=== PATIENT | female | born 1980 | race Caucasian/White ===

== ENCOUNTER → 2017-07-27 19:16 | Outpatient (CLI) | payer SELFPAY ==
[2017-03-22 16:00] VITALS: BP 127/73
[2017-07-27 08:41] VITALS: BP 126/84; BMI 47.5
== END ==
PROVIDERS: Family Provider Family Medicine; PCP Family Medicine; Visit Provider Physician Assistant Surgical
DX: J02.9 Acute pharyngitis, unspecified (principal)
CPT/HCPCS: 87081

== ENCOUNTER → 2017-08-24 09:04 | Outpatient (CLI) | payer SELFPAY ==
[2017-08-24 11:51] LABS: Absolute Lymphocyte Count 0.81 X10^3/ul (0.83-4.51); Basophil# 0.01 X10^3/uL; Basophil% 0.2 % (0-1); Eosinophil# 0.02 X10^3/uL; Eosinophils% 0.5 % (0-5); Hematocrit 43.3 % (37-47); Hemoglobin 14.4 g/dl (12.0-15.0); Lymphocyte # 0.81 X10^3/ul (4.0); Lymphocyte % 18.3 % (19-41); Mean Corp Hgb Conc 33.3 g/gl (32-36); Mean Corpuscular Hgb 30.7 pg (27.0-32.0); Mean Corpuscular Volume 92.3 fL (81-99); Mean Platelet Vol. 9.7 fl (6.2-12.0); Monocyte# 0.58 X10^3/uL; Monocyte% 13.1 % (0-10); Neutrophil # 3.01 X10^3/uL (2.7-7.7); Neutrophil % 67.9 % (47-70); Platelet Count 240 K/mm3 (150-450); RBC Distribution Width CV 13.1 % (11.6-14.6); RBC Distribution Width SD 43.7 fl (35.1-43.9); Red Blood Count 4.69 M/mm3 (4.2-5.4); White Blood Count 4.4 K/mm3 (4.4-11.0)
[2017-08-24 11:56] LABS: POSITIVE COUNT NO; POSITIVE DIFFERENTIAL NO; POSITIVE MORPHOLOGY NO
[2017-08-24 12:10] LABS: Hemoglobin A1c 5.5 % (4.2-6.3)
[2017-08-24 12:16] LABS: AST(SGOT) 50 U/L (15-37); Alanine Aminotransfer ALT/SGPT 129 U/L (13-56); Albumin, Serum 3.6 g/dL (3.2-5.0); Alkaline Phosphatase 102 U/L (45-117); Anion Gap 8 (5-15); BUN 11 mg/dL (7-18); BUN/Creat Ratio 15.8 RATIO (10-20); Calcium,Total 8.9 mg/dL (8.5-10.1); Chloride 105 mmol/L (98-107); Cholesterol 111 mg/dL (200); EST Glomerular Filtration Rate 101 mL/min (>60); Est Glom Filt Rate - Afr Amer 122 mL/min (>60); Globulin 3.7 g/dL (2.2-4.2); Glucose 95 mg/dL (74-106); High Density Lipoprotein 38 mg/dL; Potassium 4.3 mmol/L (3.5-5.1); Protein, Total 7.3 g/dL (6.4-8.2); Sodium Level 138 mmol/L (136-145); Thyroid Stim Hormone (TSH) 1.44 uIU/mL (0.358-3.74); Triglycerides 73 mg/dL; Very Low Density Lipoprotein 15 mg/dL (5-40)
[2017-08-26 16:10] LABS: Hepatitis Be Ag Negative (Negative)
[2017-08-27 11:15] LABS: Hep C Antibodies <0.1 s/co ratio (0.0-0.9); Hepatitis Be Ab Negative (Negative)
== END ==
PROVIDERS: Family Provider Family Medicine; PCP Family Medicine; Visit Provider Family Medicine
DX: Z00.00 Encounter for general adult medical examination without abnormal findings (principal); E66.01 Morbid (severe) obesity due to excess calories; R74.8 Abnormal levels of other serum enzymes
CPT/HCPCS: 36415; 80053; 80061; 83036; 84443; 85025; 86707; 86803; 87350

== ENCOUNTER → 2018-06-23 10:43 | Outpatient (CLI) | payer BC, SELFPAY ==
[2018-06-23 10:43] VITALS: BMI 47.5
[2018-06-23 12:23] LABS: ALB/GLOB Ratio 1.2 RATIO (0.9-2.4); AST(SGOT) 19 U/L (15-37); Alanine Aminotransfer ALT/SGPT 34 U/L (13-56); Albumin, Serum 3.9 g/dL (3.2-5.0); Alkaline Phosphatase 83 U/L (45-117); Anion Gap 7 (5-15); BUN 13 mg/dL (7-18); BUN/Creat Ratio 19.8 RATIO (10-20); Chloride 102 mmol/L (98-107); Creatinine, Serum 0.66 mg/dL (0.55-1.02); EST Glomerular Filtration Rate 108 mL/min (>60); Est Glom Filt Rate - Afr Amer 131 mL/min (>60); Globulin 3.2 g/dL (2.2-4.2); Glucose 96 mg/dL (74-106); Potassium 4.7 mmol/L (3.5-5.1); Protein, Total 7.1 g/dL (6.4-8.2); Sodium Level 137 mmol/L (136-145)
== END ==
PROVIDERS: Family Provider Family Medicine; PCP Family Medicine; Visit Provider Family Medicine
DX: R94.5 Abnormal results of liver function studies (principal)
CPT/HCPCS: 36415; 80053

== ENCOUNTER → 2018-08-24 16:04 | Outpatient (CLI) | payer BC, SELFPAY ==
[2018-08-24 08:23] VITALS: BMI 47.5
[2018-08-31 16:38] LABS: HPV APTIMA, High Risk Negative (Negative)
== END ==
PROVIDERS: Family Provider Family Medicine; PCP Family Medicine; Referring Provider Nurse Practitioner Women's Health; Visit Provider Nurse Practitioner Women's Health
DX: Z12.4 Encounter for screening for malignant neoplasm of cervix (principal)
CPT/HCPCS: 87624; 88175; G0145

== ENCOUNTER → 2018-09-06 13:07 | Outpatient (CLI) | payer BC, SELFPAY ==
[2018-09-06 11:50] VITALS: BMI 47.5
[2018-09-10 11:55] LABS: HPV APTIMA, High Risk Negative (Negative)
== END ==
PROVIDERS: Family Provider Family Medicine; PCP Family Medicine; Referring Provider Nurse Practitioner Women's Health; Visit Provider Nurse Practitioner Women's Health
DX: R87.615 Unsatisfactory cytologic smear of cervix (principal)
CPT/HCPCS: 87624; 88175; G0145

== ENCOUNTER → 2018-11-05 | Outpatient (CLI) | payer BC, SELFPAY ==
[2018-09-06 11:50] VITALS: BMI 47.5
[2018-11-05 09:28] LABS: hCG Titer Quant., Serum 4366 mIU/mL (1-3)
== END | disposition home or self-care (01) ==
LOC: LAB 07:11
PROVIDERS: Family Provider Family Medicine; PCP Family Medicine; Referring Provider Obstetrics & Gynecology; Visit Provider Obstetrics & Gynecology
DX: Z34.90 Encounter for supervision of normal pregnancy, unspecified, unspecified trimester (principal)
CPT/HCPCS: 36415; 84702

== ENCOUNTER → 2018-11-15 | Outpatient (CLI) | payer BC, SELFPAY ==
[2018-11-15 11:10] VITALS: BMI 47.5
[2018-11-15 13:11] LABS: Absolute Lymphocyte Count 1.36 X10^3/ul (0.83-4.51); Absolute Neutrophil Count 5.6 X10^3/uL (2.0-7.7); Basophil# 0.01 X10^3/uL; Basophil% 0.1 % (0-1); Eosinophil# 0.01 X10^3/uL; Eosinophils% 0.1 % (0-5); Hematocrit 42.7 % (37-47); Hemoglobin 14.8 g/dl (12.0-15.0); Lymphocyte # 1.36 X10^3/ul (4.0); Lymphocyte % 17.9 % (19-41); Mean Corp Hgb Conc 34.7 g/gl (32-36); Mean Corpuscular Volume 89.3 fL (81-99); Mean Platelet Vol. 9.1 fl (6.2-12.0); Monocyte# 0.57 X10^3/uL; Monocyte% 7.5 % (0-10); Neutrophil # 5.63 X10^3/uL (2.7-7.7); Neutrophil % 74.3 % (47-70); Platelet Count 280 K/mm3 (150-450); Red Blood Count 4.78 M/mm3 (4.2-5.4); White Blood Count 7.6 K/mm3 (4.4-11.0)
[2018-11-15 13:18] LABS: POSITIVE COUNT NO; POSITIVE DIFFERENTIAL NO; POSITIVE MORPHOLOGY NO
[2018-11-15 13:32] LABS: Glucose Challenge Gest 1H 50g 112 mg/dL (70-140)
[2018-11-15 14:26] LABS: HIV - WCH Non-Reactive (Nonreactive)
[2018-11-15 15:54] LABS: Chlamydia Trachomatis by PCR Negative (Negative); Neisserai gonorrhoeae by PCR Negative (Negative); Probe Check PASS; Sample Adequacy Control PASS; Specimen Processing Control PASS
[2018-11-16 15:50] LABS: HEPATITIS B SURFACE AG Negative (Negative)
[2018-11-18 01:45] LABS: Rapid Plasmin Reagin (RPR) NONREACTIVE (NONREACTIVE)
== END | disposition home or self-care (01) ==
PROVIDERS: Family Provider Family Medicine; PCP Family Medicine; Referring Provider Obstetrics & Gynecology; Visit Provider Obstetrics & Gynecology
DX: Z34.90 Encounter for supervision of normal pregnancy, unspecified, unspecified trimester (principal)
CPT/HCPCS: 82950; 85025; 86592; 86703; 86762; 86850; 86900; 87340; 87491; 87591

== ENCOUNTER → 2018-11-24 | Outpatient (CLI) | payer BC, SELFPAY ==
[2018-11-15 11:10] VITALS: BMI 47.5
--- NOTE | 2018-11-24 13:59 | US_ITS ---
STUDY: FIRST TRIMESTER OBSTETRICAL ULTRASOUND REASON FOR EXAM: Female, 38 years old. dating. LMP: 09/24/18 TECHNIQUE: Transvaginal TECHNICAL QUALITY: Adequate. PRIOR ULTRASOUND: None. FINDINGS: There is visualization of a single gestational sac in a normal intrauterine position. The gestational sac shape is within normal limits. There is a visualized yolk sac. The yolk sac measures 5 mm. The placenta is non-visualized. There is visualization of a live embryo. The crown-rump length (CRL) measures 1.7 cm, indicating an estimated gestational age (EGA) of 8 weeks, 1 days. There is demonstrated cardiac activity with a heart rate of 174 bpm. The estimated gestation age (EGA) by LMP is 8 weeks, 5 days. The estimated date of delivery (RICHY) by LMP is 07/01/2019. The estimated gestation age (EGA) by US is 8 weeks, 1 days. The estimated date of delivery (RICHY) by US is 07/05/2019. The uterus measures 10.5 x 7.3 x 5.7 centimeters. There is no demonstrated uterine fibroid. The cervix is closed. The right ovary measures 2.5 x 1.3 x 1.4 cm. There is no right ovarian cyst. There is no visualized right adnexal mass or complex lesion. The left ovary measures 4.3 x 3.0 x 2.7 cm. There is a 2.3 cm cyst. There is no visualized left adnexal mass or complex lesion. There is no fluid in the cul de sac. US/Transvaginal w/Preg US IMPRESSION: Single live intrauterine gestation with ultrasound EGA of 8 weeks 1 day. No definite abnormality. Electronically Signed: Simone Linton MD at 16:07 EDT , Service support ,
== END | disposition home or self-care (01) ==
PROVIDERS: Family Provider Family Medicine; PCP Family Medicine; Referring Provider Obstetrics & Gynecology; Visit Provider Obstetrics & Gynecology
DX: Z36.89 Encounter for other specified antenatal screening (principal)
CPT/HCPCS: 76817

== ENCOUNTER → 2019-01-16 | Outpatient (CLI) | payer BC, SELFPAY ==
[2019-01-16 10:17] VITALS: BMI 47.5
== END | disposition home or self-care (01) ==
LOC: LABSPEC 12:50
PROVIDERS: Family Provider Family Medicine; PCP Family Medicine; Referring Provider Obstetrics & Gynecology; Visit Provider Obstetrics & Gynecology
DX: O09.90 Supervision of high risk pregnancy, unspecified, unspecified trimester (principal); Z3A.00 Weeks of gestation of pregnancy not specified
CPT/HCPCS: 87086; 87088

== ENCOUNTER → 2019-04-10 | Outpatient (CLI) | payer BC, SELFPAY ==
[2019-04-10 14:09] VITALS: BMI 48.7
[2019-04-10 16:18] LABS: Absolute Lymphocyte Count 1.42 X10^3/uL (0.83-4.51); Absolute Neutrophil Count 7.5 X10^3/uL (2.0-7.7); Basophil# 0.01 X10^3/uL; Basophil% 0.1 % (0-1); Eosinophil# 0.03 X10^3/uL; Eosinophils% 0.3 % (0-5); Hematocrit 36.7 % (37-47); Hemoglobin 12.3 g/dL (12.0-15.0); Lymphocyte # 1.42 X10^3/ul (4.0); Lymphocyte % 14.7 % (19-41); Mean Corp Hgb Conc 33.5 g/dL (32-36); Mean Corpuscular Hgb 31.8 pg (27.0-32.0); Mean Corpuscular Volume 94.8 fL (81-99); Monocyte% 7.2 % (0-10); NRBC Flagged by Analyzer 0 % (0-5); Neutrophil # 7.46 X10^3/uL (2.7-7.7); Neutrophil % 77.1 % (47-70); Platelet Count 221 K/mm3 (150-450); RBC Distribution Width CV 13.8 % (11.6-14.6); Red Blood Count 3.87 M/mm3 (4.2-5.4); White Blood Count 9.7 K/mm3 (4.4-11.0)
[2019-04-10 16:38] LABS: Glucose Challenge Gest 1H 50g 116 mg/dL (70-140)
== END | disposition home or self-care (01) ==
PROVIDERS: Family Provider Family Medicine; PCP Family Medicine; Referring Provider Obstetrics & Gynecology; Visit Provider Obstetrics & Gynecology
DX: Z34.92 Encounter for supervision of normal pregnancy, unspecified, second trimester (principal); Z3A.27 27 weeks gestation of pregnancy
CPT/HCPCS: 36415; 82950; 85025; 86850; 86900; 86901

== ENCOUNTER → 2019-05-19 07:53 | Outpatient (CLI) | payer BC, SELFPAY ==
[2019-05-08 14:06] VITALS: BMI 48.7
[2019-05-15 14:04] VITALS: BMI 48.7
--- NOTE | 2019-05-19 07:55 | US_ITS ---
STUDY: SECOND AND THIRD TRIMESTER OBSTETRICAL ULTRASOUND REASON FOR EXAM: Female, 39 years old LMP: TECHNIQUE: TECHNICAL QUALITY: Adequate. PRIOR ULTRASOUND: None. FINDINGS: There is a single intrauterine fetus. The fetus is in a cephalic presentation. There is demonstrated cardiac activity with a heart rate of 126 bpm. There is a normal amniotic fluid volume. The largest amniotic fluid pocket measures 3.7 cm. The amniotic fluid index (ROLF) is 11.1 cm. The placenta is fundal and posterior There are Grade 0 placental changes. The cervix measures 3.6 in length. The bilateral adnexal regions are normal. BIOMETRY: BPD: 8.6: cm 34 weeks, 4 days HC: 30.9cm34 weeks, 2 days AC: 31.4cm: 35 weeks, 2 days FL: 6.2 cm: 32 weeks, 2. days CI: 84% FL/BPD: 73% FL/HC: FL/AC: HC/AC: 98% age by current US: 33 weeks, 4 days. RICHY by current US: 07/03/2019. Estimated weight: 2415 grams, +/- 357 grams, 70.5 %. age by prior US: 33 weeks, 2. RICHY by prior US: 07/05/2019. Age by LMP: weeks, days. RICHY by LMP: . ANATOMY: Gender: Cranium: Normal lateral ventricles. Normal choroid plexus. Normal cerebellum. Normal cisterna magna. Normal face, nose and lips. Chest: Normal 4-chamber heart. Abdomen/Pelvis: Normal diaphragm. Normal stomach. Normal abdominal wall. Normal cord insertion. Normal 3 vessel cord. Normal kidneys. Normal bladder. Spine: Normal cervical spine. Normal thoracic spine. Normal lumbar spine. Normal sacrum. Extremities: Normal bilateral upper extremities. Normal bilateral lower extremities. US/OB Limited With Biometrics IMPRESSION: Viable corresponds to 33 weeks 4 days Electronically Signed: Chaya Douglas, at 11:06 EST Tel , Service support ,
== END ==
PROVIDERS: Family Provider Family Medicine; PCP Family Medicine; Referring Provider Obstetrics & Gynecology; Visit Provider Obstetrics & Gynecology
DX: O09.291 Supervision of pregnancy with other poor reproductive or obstetric history, first trimester (principal); O09.529 Supervision of elderly multigravida, unspecified trimester; Z3A.00 Weeks of gestation of pregnancy not specified
CPT/HCPCS: 76816

== ENCOUNTER 2019-05-22 14:24 | Outpatient (CLI) | payer BC, SELFPAY ==
[2019-05-15 14:04] VITALS: BMI 48.7
--- NOTE | 2019-05-22 17:47 | OB.TRI.PN ---
Progress Notes Date of Service: 05/22/19 Progress Note: FHT: 130 Moderate variability reactive no decelerations category I tracing [employer]: no Contractions Obesity and advanced maternal age reactive nst Multi Select Codes - Urinary/Genital Urinary/Genital CPT Codes: 30746-31 non-stress test Interp
== END 2019-05-22 15:20 | disposition home or self-care (01) ==
LOC: WPOUT 14:27 → WP 14:28
PROVIDERS: Family Provider Family Medicine; PCP Family Medicine; Referring Provider Obstetrics & Gynecology; Visit Provider Obstetrics & Gynecology
DX: O99.210 Obesity complicating pregnancy, unspecified trimester (principal); E66.9 Obesity, unspecified; Z3A.00 Weeks of gestation of pregnancy not specified
CPT/HCPCS: 59025; 59050; 99218; G0378

== ENCOUNTER 2019-06-05 14:10 | Outpatient (CLI) | payer BC, SELFPAY ==
[2019-05-29 14:05] VITALS: BMI 48.7
[2019-06-05 14:17] VITALS: BMI 50.7
--- NOTE | 2019-06-05 14:54 | OB.TRI.PN ---
Progress Notes Date of Service: 06/05/19 Progress Note: FHT: 130 Moderate variability reactive no decelerations category I tracing [place]: no Contractions NST secondary to obesity and advanced maternal age reactive NST category 1 tracing DC home - Problem List (1) Obesity affecting in third trimester Status: Acute Comment: weekly testing, encouraged healthy weight gain (2) AMA (advanced maternal age) multigravida 35+ Status: Acute Qualifiers: Comment: offered genetic screening, declined Multi Select Codes - Urinary/Genital Urinary/Genital CPT Codes: 36713-38 non-stress test Interp
== END 2019-06-05 15:00 | disposition home or self-care (01) ==
PROVIDERS: Family Provider Family Medicine; PCP Family Medicine; Referring Provider Obstetrics & Gynecology; Visit Provider Obstetrics & Gynecology
DX: O99.213 Obesity complicating pregnancy, third trimester (principal); Z3A.00 Weeks of gestation of pregnancy not specified
CPT/HCPCS: 59025

== ENCOUNTER → 2019-06-12 17:56 | Outpatient (CLI) | payer BC, SELFPAY ==
[2019-06-12 14:02] VITALS: BMI 50.7
== END ==
PROVIDERS: Family Provider Family Medicine; PCP Family Medicine; Referring Provider Obstetrics & Gynecology; Visit Provider Obstetrics & Gynecology
DX: Z34.93 Encounter for supervision of normal pregnancy, unspecified, third trimester (principal); Z3A.36 36 weeks gestation of pregnancy
CPT/HCPCS: 87081; 87186

== ENCOUNTER 2019-06-29 06:10 | Inpatient (IN) | payer BC, SELFPAY ==
[2019-06-26 14:20] VITALS: BMI 50.7
[2019-06-29] MEDS: Lactated Ringers 1,000 ML 50 ML IV (07:10)
[2019-06-29] MEDS: Lactated Ringers 500 ML 999 ML IV ×2 (07:35→08:27)
[2019-06-29 07:49] VITALS: BMI 51.9
[2019-06-29 07:54] LABS: Absolute Lymphocyte Count 0.82 X10^3/uL (0.83-4.51); Absolute Neutrophil Count 12.2 X10^3/uL (2.0-7.7); Basophil# 0.02 X10^3/uL; Basophil% 0.1 % (0-1); Eosinophil# 0.01 X10^3/uL; Eosinophils% 0.1 % (0-5); Hematocrit 39.9 % (37-47); Hemoglobin 13.5 g/dL (12.0-15.0); Lymphocyte # 0.82 X10^3/ul (4.0); Lymphocyte % 5.9 % (19-41); Mean Corp Hgb Conc 33.8 g/dL (32-36); Mean Corpuscular Hgb 31.3 pg (27.0-32.0); Mean Corpuscular Volume 92.6 fL (81-99); Mean Platelet Vol. 9.4 fl (6.2-12.0); Monocyte# 0.67 X10^3/uL; Monocyte% 4.9 % (0-10); NRBC Flagged by Analyzer 0 % (0-5); Neutrophil # 12.21 X10^3/uL (2.7-7.7); Neutrophil % 88.6 % (47-70); Platelet Count 202 K/mm3 (150-450); RBC Distribution Width CV 13.7 % (11.6-14.6); RBC Distribution Width SD 46.3 fl (35.1-43.9); Red Blood Count 4.31 M/mm3 (4.2-5.4); White Blood Count 13.8 K/mm3 (4.4-11.0)
[2019-06-29] MEDS: fentaNYL-bupivacaine (epidural) 100 ML BAG EPIDURAL (08:12)
--- NOTE | 2019-06-29 09:39 | PCM.HPOB.BLA ---
- Problem List (1) Active labor at term Status: Acute (2) AMA (advanced maternal age) multigravida 35+ Status: Acute Qualifiers: Comment: offered genetic screening, declined (3) History of pre-eclampsia in prior , currently in first trimester Status: Acute Comment: recommend baseline labs, baby ASA at 12 weeks (4) Obesity affecting in third trimester Status: Acute Comment: weekly testing, encouraged healthy weight gain (5) Positive GBS test Status: Acute Comment: pcn sensitive and use clinda to tx (6) Status: Acute Qualifiers: Comment: Declines additional testing (7) Supervision of high risk , antepartum Status: Acute Comment: PRR RICHY 07/05/19 boy TRACEE Hernandez Spouse Moises History and Physical Date of Admission: 06/29/19 Intake Vital Signs 06/26/19 Height 5 ft 1 in 06/26/19 Weight: 275 lb 4 oz 06/26/19 BMI 52.0 Intake Visit Reasons: 38 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 Emergency Required: No Accompanied by: Is patient in pain?: No Allergies gluten Allergy (Mild, Verified 06/26/19 14:19) unknown gentamicin Allergy (Verified 06/26/19 14:19) Rash pseudoephedrine [From Sudafed] Allergy (Verified 06/26/19 14:19) Rash Medications lactobacillus combination no.9 4 billion cell capsule 1 tab PO DAILY 07/27/17 [History Confirmed 06/26/19] Vits [Prenatabs FA ] 1 tab PO DAILY 06/05/19 [History Confirmed 06/26/19] Last Menstral Period: 09/24/18 Zika: Zika virus screening: Negative : No PFSH PFSH Medical History Fatty liver (Acute) History of pre-eclampsia (Acute) Hypertension (Chronic) Surgical History History of cholecystectomy (Inactive) Social History (Updated 06/27/19 @ 09:43 by Jennifer Garay MD) Smoking Status: Never smoker alcohol intake: current alcohol intake frequency: holidays/special occasions only details: social substance use type: does not use caffeine: Yes what type of physical activity do you participate in: none seatbelt use: always do you feel safe at home: Yes additional social history: Moises Pregancy History 2 Elective abortions Hx Para 1 Spontaneous abortions Hx # Term Pregnancies Ectopic pregnancies Hx # Pregnancies Multiple births # of living children Past Pregnancies Del. Date Name GA/Weeks Outcome Route Bth Weight Gen Labor Lgth Anesthesia Del Locatn Provider FOB 03/20/17 David 37 live - full term 7lbs 2oz Male epidural WC ZAID Delivery Date: 03/20/17 On 11/15/18 @ 11:25 Funmilayo Jacobs Pre E, HPI 38 WEEK OB/NST: Details: GEOFF TYLER is a 39 year old who presents for routine OB visit. OB Visit RICHY Calculator Estimated Delivery Date Method Current WG Current Estimate 07/05/19 Ultrasound #1 38w 6d Other Estimates 07/01/19 LMP (Certain) 39w 3d Expected Delivery Route/Plan Labor Preferences- labor support person: [] pain management options preferred: [] cut cord/dad catch: [] : PP control planned: [] discussed possible routes of delivery and associated risks: [] special requests: [] Specific Issue/Plans flu vaccine: declines tdap vaccine: given rhogam: na LARC form signed: declined movement and labor precautions reviewed. Problem list reviewed and updated with the most current plan of care details and appropriate orders placed. Relevant counseling for the gestational age provided. Continue routine care and follow up unless otherwise noted in visit notes/problem list details Initial Weight: 248 lb Date EGA Weight BP Urine Prot Glucose FHR FuHt Pres Mov CTX Dilation Effaced St Visit Note 12/15/18 11w 1d 250 lb 8 oz (+2 lb 8 oz) 112/88 Negative Negative 175 no vb crmpaing 01/16/19 15w 5d 249 lb 2 oz (+1 lb 2 oz) 112/78 02/14/19 19w 6d 258 lb (+10 lb) 116/82 Negative Negative 160 20 Active no vb lof good fm n oregular ctx 03/15/19 24w 0d 261 lb (+13 lb) 120/80 Negative Negative 150 24 Active no vb cramping 04/10/19 27w 5d 261 lb (+13 lb) 112/78 150 28 no vb cramping 04/24/19 29w 5d 267 lb 2 oz (+19 lb 2 oz) 128/86 Negative Negative 150 140 31 no vb lof good fm no regular ctx 05/08/19 31w 5d 264 lb 4 oz (+16 lb 4 oz) 124/84 Negative Negative 145 35 no vb lof good fm no reg ctx 05/15/19 32w 5d 268 lb (+20 lb) 126/82 Negative Negative 06/12/19 36w 5d 271 lb (+23 lb) 120/88 Negative Negative SM - no vb lof good fm no regular ctx gbs today 06/19/19 37w 5d 271 lb 2 oz (+23 lb 2 oz) 118/80 Negative Negative 140 37 SM- no vb lof good fm no regular ctx Notes Visit Date: 06/19/19 ??No visit notes to display Visit Date: 06/12/19 ??No visit notes to display Visit Date: 05/15/19 ??No visit notes to display Visit Date: 05/08/19 ??no vb lof good fm no reg ctx ??Jennifer Garay MD on 05/08/19 Visit Date: 04/24/19 ??no vb lof good fm no regular ctx ??Jennifer Garay MD on 04/24/19 Visit Date: 04/10/19 ??no vb cramping ??Jennifer Garay MD on 04/10/19 Visit Date: 03/15/19 ??no vb cramping ??Jennifer Garay MD on 03/15/19 Visit Date: 02/14/19 ??no vb lof good fm n oregular ctx ??Jennifer aGray MD on 02/20/19 Visit Date: 01/16/19 ??No visit notes to display Visit Date: 12/15/18 ??no vb crmpaing ??Jennifer Garay MD on 12/15/18 ACOG First Trimester First Trimester: Desire for , Alcohol, Tobacco Cessation, Illicit/Recreational Drug/Substance Use, Intimate Partner Violence, Barriers to care, Unstable Housing, Communication Barriers, Environmental/Work Hazards, Anticipated Course of Care, Toxoplasmosis Precations, Use of Any medications, Sexual activity, Exercise, Dental Care, Sauna/Hot tub use, Seat Belt use, Childbirth classes/Hospital facilities, , Travel, Indications for US and Screening for Aneuploidy Second Trimester Second Trimester: Signs and Symptoms of Labor, Selecting a care provider, Reproductive Life Planning, Care Planning, Tobacco Cessation, Depression/Anxiety and Intimate Partner Violence Third Trimester Third Trimester: Pain Management Plans, Labor support person(s), Immediate Larc, Movement Monitoring and Feeding Yes ; discussed Trial of Labor after Counseling or discussed Circumcision preference Diagnostics Diagnostics Diagnostics Blood Type O POSITIVE 04/10/19 Antibody Screen NEGATIVE 04/10/19 Glucose 1 Hr 50 gm 116 mg/dL (70-140) 04/10/19 Hgb 12.3 g/dL (12.0-15.0) 04/10/19 Hct 36.7 % (37-47) L 04/10/19 Details: HIV: Urine Culture: Sequential Screen: NIPT Screen: ROS Const Reports system reviewed and no additional complaints, except as docu Card Reports system reviewed and no additional complaints, except as docu Resp Reports system reviewed and no additional complaints, except as docu GI Reports system reviewed and no additional complaints, except as docu, Reports nausea Reports system reviewed and no additional complaints, except as docu Musc Reports system reviewed and no additional complaints, except as docu Exam Const General: cooperative, healthy appearing, comfortable, anxious HENMO Head: normal to inspection Nose: external nose normal Face and sinus: normal facial exam Neck Neck: normal visual inspection, full ROM, no lymphadenopathy Thyroid: thyroid normal Chest Chest palpation & inspection: normal inspection of the chest Resp Effort & Inspection: normal respiratory effort GI Inspection: normal to inspection Palpation: soft, other (gravid uterus) Other: infant vertex and appropriate size for gestational age Other: Cervical Exam: Extrem General: pedal edema Office Procedures OB NST Non-Stress Test Indications for Monitoring: Yes BMI >40 Heart Rate Baseline: 130 Heart Rate Variability: moderate Movement: Present Heart Rate Accelerations: Present Decelerations: Absent Contractions: Absent Impression: Yes Reactive Non-Stress Test Category 1 Results POC Urinalysis 2 Dip (Clinic) Office Urine Glucose Negative Last Edit by Karen Lawson on 06/26/19 14:18 Office Urine Protein Negative Last Edit by Karen Lawson on 06/26/19 14:18 Assessment & Plan 39 yo @ 39 weeks presents IAL plan epidural, arom clear fluid. exp management gbs pos- pcn. Orders Orders: OB NST 06/26/19 O99.213 POC Urinalysis 2 Dip (Clinic) 06/26/19 Coding Level of Care Code OB Routine Additional Codes Non-Stress Test (79906)
[2019-06-29] MEDS: Lactated Ringers 1,000 ML 200 ML IV (12:10)
[2019-06-29] MEDS: Ondansetron 4 MG/2 ML Vial IV (12:33)
[2019-06-29] MEDS: Oxytocin 30 units/NS 500 ml 30 UNITS/500 ML IV.SOLN 334 UNITS IV (12:52)
--- NOTE | 2019-06-29 13:36 | OP.PCM_ITS ---
Problem List (1) Active labor at term Status: Acute (2) AMA (advanced maternal age) multigravida 35+ Status: Acute Qualifiers: Comment: offered genetic screening, declined (3) History of pre-eclampsia in prior , currently in first trimester Status: Acute Comment: recommend baseline labs, baby ASA at 12 weeks (4) Obesity affecting in third trimester Status: Acute Comment: weekly testing, encouraged healthy weight gain (5) Positive GBS test Status: Acute Comment: pcn sensitive and use clinda to tx (6) Status: Acute Qualifiers: Comment: Declines additional testing (7) Supervision of high risk , antepartum Status: Acute Comment: PRR RICHY 07/05/19 boy TRACEE Hernandez Spouse Moises Vaginal Delivery Maternal Presentation: Active Labor ial 39 weeks Amniotic Membrane Rupture Type: Artificial Amniotic Fluid Description: Clear Date of Procedure: 06/29/19 Pre-Operative Diagnosis: ial Post-Operative Diagnosis: same Surgery/ Procedure Performed: Spontaneous Vaginal Delivery Type of Anesthesia: Epidural Description of Procedure: Patient began pushing and delivered the head in the RAPHAEL presentation. The head was delivered atraumatically. The anterior and posterior shoulders delivered without complication followed by the rest of the infant and the infant was placed on the maternal abdomen. Delayed cord clamping was employed for approximately 60 seconds. Cord was clamped and cut and gentle traction was applied to the cord and the placenta delivered spontaneously immediately following it was noted to be intact with three-vessel cord. The perineum and vagina were inspected and noted to have no laceration. EBL was 100 cc. Patient and infant tolerated delivery well. Presentation: RAPHAEL Placental Delivery Description: Spontaneous Placenta Disposition: [facility] Cord Vessel Description: 3 Vessels Cord Entanglement: None Estimated Blood Loss: 100 A gender: Male Episiotomy Description: None Laceration: None Medications given after delivery: IV Pitocin Complications: None Multi Select Codes - Urinary/Genital Urinary/Genital CPT Codes: 72628 Vaginal Delivery [facility]
[2019-06-29 15:35] VITALS: BP 131/58; PULSE 118; RESP 18; TEMP 37.4; O2SAT 96
[2019-06-29] MEDS: 0.9% Saline Lock 10 ML Syringe IV (15:47)
[2019-06-29] MEDS: Naproxen 250 MG Tablet 500 MG PO (17:10)
[2019-06-29 20:41] VITALS: BP 130/79; PULSE 100; RESP 18; TEMP 36.8
[2019-06-30 00:14] VITALS: BP 119/65; PULSE 100; RESP 16; TEMP 36.8
[2019-06-30 04:19] VITALS: BP 112/65; PULSE 94; RESP 18; TEMP 36.3
[2019-06-30 08:05] VITALS: BP 119/72; PULSE 100; RESP 18; TEMP 36.2
--- NOTE | 2019-06-30 09:09 | PCM.PN.OB ---
Patient Problems: Active and Suspected Problems (Last Reviewed 06/26/19 @ 14:19 by Karen Lawson) Active labor at term (Acute) Subjective: doing well no complaints pain controlled no CP SOB N V ambulating well tolerating po lochia moderate, going well - Physical Exam Vitals/I&O's: Vital Signs Temp Pulse Resp BP Pulse Ox 97.2 F L 100 18 119/72 96 06/30/19 08:05 06/30/19 08:05 06/30/19 08:05 06/30/19 08:05 06/29/19 15:35 Oxygen Delivery Method Room Air Weight: 274 lb 14.663 oz Body Mass Index (BMI) 51.9 Intake and Output for Last 24 Hours 06/28/19 06/29/19 06/30/19 23:59 23:59 23:59 Intake Total 4131.74 / 4131.74 Output Total 2350 / 2350 Balance 1781.74 / 1781.74 Current Medications Acetaminophen (Tylenol) 1,000 mg PO Q8H PRN PRN PRN Reason: Pain Score 1-3/10 Bisacodyl (Dulcolax) 10 mg RECTAL UD PRN PRN Reason: If no BM Dibucaine (Dibucaine) 1 applic TOPICAL TID PRN PRN; Protocol PRN Reason: Discomfort Hydrocortisone (Hytone) 1 applic TOPICAL TID PRN PRN; Protocol PRN Reason: Discomfort Methylergonovine Maleate (Methergine) 0.2 mg IM X1 PRN PRN Reason: Excess bleeding/uterine atony Naproxen (Naprosyn) 500 mg PO Q8H PRN PRN PRN Reason: Pain Score 1-3/10 Last Admin: 06/29/19 17:10 Dose: 500 mg Documented by: Ondansetron HCl (Zofran) 4 mg IV Q4H PRN PRN PRN Reason: Nausea Oxycodone HCl (Oxyir) 5 - 10 mg PO Q4H PRN PRN PRN Reason: Pain Score 4-10/10 Senna/Docusate Sodium (Senokot-S, Rhoda-Colace) 1 - 2 tablet PO DAILY PRN PRN PRN Reason: Constipation Simethicone (Mylicon) 80 mg PO PCHS PRN PRN Reason: Indigestion/Stomach pain Sodium Chloride () 5 - 15 ml IV UD PRN PRN Reason: SALINE FLUSH Last Admin: 06/29/19 15:47 Dose: 10 ml Documented by: Medical Necessity - Tobacco Use Smoking Status: Never smoker Assessment/Plan All Active Problems (Last Reviewed 06/26/19 @ 14:19 by Karen Lawson) Active labor at term (Acute) Positive GBS test (Acute) Obesity affecting in third trimester (Acute) Supervision of high risk , antepartum (Acute) AMA (advanced maternal age) multigravida 35+ (Acute) (Acute) History of pre-eclampsia in prior , currently in first trimester (Acute) Sinusitis, acute (Resolved) Sore throat (Resolved) s/p PPD # 1 1. routine post delivery care 2. breast feeding- support given 3. rh positive 4. rubella immune
[2019-06-30 12:54] VITALS: BP 110/52; PULSE 95; RESP 16; TEMP 36.3
[2019-06-30 15:04] VITALS: BP 128/78; PULSE 102; RESP 18; TEMP 36.8
[2019-06-30 19:50] VITALS: BP 130/80; PULSE 88; RESP 18; TEMP 36.6
[2019-06-30] MEDS: Ondansetron ODT 4 MG Tablet PO (20:28)
--- NOTE | 2019-06-30 23:17 | DCINST_ITS ---
Discharge Diet: No Restrictions Discharge Activity: Return to Normal Activity, May not drive while taking narcotic pain medications., May Shower May resume sexual activity in: 4-6 weeks Call your doctor if your incision/area has: Continuous Slow Oozing, Sudden Increased Bleeding, Increased Pain/ Swelling, Increased Redness, Foul Smelling Discharge Additional Instructions: If you experience any of the following, contact your healthcare provider. * Bleeding that soaks a pad every hour for 2 hours * Fever 100.4 or higher * Unrelieved incision or abdominal pain * Swelling, redness, discharge or bleeding from your incision or episiotomy site * Your incision begins to separate * Problems urinating (including inability to urinate or burning while urinating). * Visual changes * Severe headache * Flu-like symptoms * Pain or redness in one of both of your breasts * Pain, warmth, tenderness or swelling in your legs, especially the calf area * Frequent nausea and vomiting * Symptoms of depression or anxiety If you experience any of the following, call 911 or go to the nearest Emergency Room. * Chest pain * Problems breathing * Seizure activity * Partial or complete paralysis of a body part, slurred speech, weakness or drooping of the face, or a sudden inability to walk or hold your balance Allergies/Adverse Reactions: Allergies gluten Allergy (Mild, Verified 06/29/19 07:50) unknown gentamicin Allergy (Verified 06/29/19 07:50) Rash pseudoephedrine [From Sudafed] Allergy (Verified 06/29/19 07:50) Rash Medications to take at Discharge Vits [Prenatabs FA ] 1 tab PO DAILY 06/05/19 Please Follow Up With: Jennifer Garay MD - [phone] When: Call to make an appointment with your doctor in 6 weeks. If you had elevated Blood pressure or 4th degree laceration you will need to be seen in 2 weeks. Test Results: Test results from this visit will be discussed in further detail at your follow- up appointment, if applicable.
--- NOTE | 2019-06-30 23:17 | PCM.DCVAG ---
Discharge Diet: No Restrictions Discharge Activity: Return to Normal Activity, May not drive while taking narcotic pain medications., May Shower May resume sexual activity in: 4-6 weeks Call your doctor if your incision/area has: Continuous Slow Oozing, Sudden Increased Bleeding, Increased Pain/ Swelling, Increased Redness, Foul Smelling Discharge Additional Instructions: If you experience any of the following, contact your healthcare provider. Bleeding that soaks a pad every hour for 2 hours Fever 100.4 or higher Unrelieved incision or abdominal pain Swelling, redness, discharge or bleeding from your incision or episiotomy site Your incision begins to separate Problems urinating (including inability to urinate or burning while urinating). Visual changes Severe headache Flu-like symptoms Pain or redness in one of both of your breasts Pain, warmth, tenderness or swelling in your legs, especially the calf area Frequent nausea and vomiting Symptoms of depression or anxiety If you experience any of the following, call 911 or go to the nearest Emergency Room. Chest pain Problems breathing Seizure activity Partial or complete paralysis of a body part, slurred speech, weakness or drooping of the face, or a sudden inability to walk or hold your balance Allergies/Adverse Reactions: Allergies gluten Allergy (Mild, Verified 06/29/19 07:50) unknown gentamicin Allergy (Verified 06/29/19 07:50) Rash pseudoephedrine [From Sudafed] Allergy (Verified 06/29/19 07:50) Rash Medications to take at Discharge Vits [Prenatabs FA ] 1 tab PO DAILY 06/05/19 Please Follow Up With: Jennifer Garay MD - [phone] When: Call to make an appointment with your doctor in 6 weeks. If you had elevated Blood pressure or 4th degree laceration you will need to be seen in 2 weeks. Test Results: Test results from this visit will be discussed in further detail at your follow-up appointment, if applicable.
[2019-07-01 02:35] VITALS: BP 127/79; PULSE 76; RESP 14; TEMP 36.6
[2019-07-01] MEDS: Ondansetron ODT 4 MG Tablet PO (04:36)
[2019-07-01 09:07] VITALS: BP 106/75; PULSE 99; RESP 18; TEMP 37.2
[2019-07-01 15:03] VITALS: BP 134/77; PULSE 105; RESP 16; TEMP 37.1
[2019-07-01 17:30] VITALS: BP 134/77; PULSE 105; RESP 16; TEMP 37.1
== END 2019-07-01 17:30 | disposition home or self-care (01) | DRG 807 ==
PROVIDERS: Admitting Provider Obstetrics & Gynecology; Referring Provider Obstetrics & Gynecology; Visit Provider Obstetrics & Gynecology
DX: O98.82 Other maternal infectious and parasitic diseases complicating childbirth (principal); Z37.0 Single live birth; B95.1 Streptococcus, group B, as the cause of diseases classified elsewhere; O99.214 Obesity complicating childbirth; E66.9 Obesity, unspecified; Z3A.39 39 weeks gestation of pregnancy
CPT/HCPCS: 59025; 59050; 85025; 86850; 86900; 86901; 99218; J7120; A4216; G0378; J2405

== ENCOUNTER → 2019-07-04 10:53 | Outpatient (CLI) | payer BC, SELFPAY ==
[2019-06-29 07:49] VITALS: BMI 51.9
--- NOTE | 2019-07-04 10:55 | VDLE_ITS ---
Reason For Study: swelling Procedure LEFT Exam performed in department. GSV is normal. The exam was diagnostic. CFV is compressible, spontaneous, phasic, A preliminary report was called and/or competent, and demonstrates normal faxed to Karen at [facility] office. augmentation. FV is compressible, spontaneous, phasic, competent and demonstrates normal augmentation. POP V is compressible, spontaneous, phasic, competent and demonstrates normal augmentation. T/P Trunk is compressible. PTV is compressible. LT PerV is compressible. Varicose veins at the knee are dilated and noncpompressible. Interpretation Summary There is no evidence of left lower extremity deep vein thrombosis. Left great saphenous vein appears patent and compressible segmentally. Superficial thrombophlebitis within varicose veins based around the knee. Ordering Physician: Lorri [facility] Performed By: Wojciech Pires RVT
== END ==
PROVIDERS: Family Provider Family Medicine; PCP Family Medicine; Referring Provider Nurse Practitioner Women's Health; Visit Provider Nurse Practitioner Women's Health
DX: R60.9 Edema, unspecified (principal); M79.89 Other specified soft tissue disorders
CPT/HCPCS: 93971

== ENCOUNTER → 2019-12-11 08:24 | Outpatient (CLI) | payer BC, SELFPAY ==
[2019-08-09 15:05] VITALS: BMI 51.9
[2019-12-11 09:38] LABS: AST(SGOT) 65 U/L (15-37); Alanine Aminotransfer ALT/SGPT 138 U/L (13-56); Albumin, Serum 3.5 g/dL (3.2-5.0); Alkaline Phosphatase 77 U/L (45-117); BUN 16 mg/dL (7-18); BUN/Creat Ratio 23.5 RATIO (10-20); Calcium,Total 9.2 mg/dL (8.5-10.1); Chloride 103 mmol/L (98-107); Creatinine, Serum 0.68 mg/dL (0.55-1.02); EST Glomerular Filtration Rate 103 mL/min (>60); Est Glom Filt Rate - Afr Amer 125 mL/min (>60); Globulin 3.5 g/dL (2.2-4.2); Glucose 100 mg/dL (74-106); Potassium 4.1 mmol/L (3.5-5.1); Sodium Level 137 mmol/L (136-145)
[2019-12-11 09:39] LABS: Anion Gap 5 (5-15)
== END ==
PROVIDERS: PCP Family Medicine; Referring Provider Family Medicine; Visit Provider Family Medicine
DX: R79.89 Other specified abnormal findings of blood chemistry (principal)
CPT/HCPCS: 36415; 80053

== ENCOUNTER 2019-12-21 22:07 | Emergency (ER) | payer BC, SELFPAY ==
[2019-08-09 15:05] VITALS: BMI 51.9
[2019-12-21 22:08] VITALS: BP 159/88; PULSE 100; RESP 17; TEMP 36.6; O2SAT 99; BMI 47.7
--- NOTE | 2019-12-21 22:31 | ED.VIS.GEN ---
History of Present Illness Chief Complaint: Lower Extremity Injury Onset: Today Narrative: Patient presents noting a bump on her right inner leg distally. Nontender nonpruritic. She has varicose veins. Is been having swelling with upcoming ultrasound as an outpatient. No calf or medial thigh pain. No chest pains or shortness of breath. She is probably 6 months , there is a work-up for DVT that was negative afterwards per patient. She was never on anticoagulation medicines. Also reports rash of her left arm and was exposed poison trudi while pulling plants. States pruritic with mild drainage. No fevers. No other complaints. Prior similar symptoms: No Past Medical History - Allergies and Home Meds Allergies/Adverse Reactions: Allergies gluten Allergy (Mild, Verified 12/21/19 22:07) unknown gentamicin Allergy (Verified 12/21/19 22:07) Rash pseudoephedrine [From Sudafed] Allergy (Verified 12/21/19 22:07) Rash Primary Care Physician: Earl Bingham MD [Primary Care Provider] - Past Medical History: - - Hypertension, preeclampsia Smoking Status: Never smoker Review of Systems General: Denies: Chills, Fever, Sweats Eyes: Denies: Visual changes - bilaterally, Diplopia ENT: Denies: Rhinorrhea, Sore throat Cardiovascular: Denies: Chest pain, Palpitations Respiratory: Denies: Dyspnea, Cough, Dyspnea on exertion Gastrointestinal: Denies: Abdominal pain, Nausea, Vomiting, Diarrhea, Melena, Hematochezia Genitourinary: Denies: Dysuria, Hematuria, Frequency Musculoskeletal: Denies: Back pain, Extremity Pain Skin: Reports: Rash. Denies: Wounds Neurological: Denies: Headache, Weakness, Numbness Physical Exam Vital Signs/Narrative: Vital Signs Temp Pulse Resp BP Pulse Ox 12/21/19 22:08 97.8 F 100 17 159/88 H 99 Inital Vital Signs reviewed: Yes General: Well nourished, Well developed, No Acute Distress Head: Normocephalic, Atraumatic Eyes: Perrl, EOMI ENT: Moist mucous membranes, No rhinorrhea Neck: Supple, Nontender Cardiovascular: Regular rate, Regular rhythm, No murmurs Respiratory: No distress, CTA bilaterally, Chest nontender Abdomen: Soft, Nontender, Nondistended, Normal bowel sounds Back: Nontender, Normal Inspection Extremities: Nontender, No edema Skin: Normal color, - - Left upper extremity: Forearm patch of erythema ulnar aspect proximal forearm, there was a small area of yellow drainage. Right lower extremity: Distal inner leg near malleolus, small less than 0.5 cm nodule, no fluctuance nontender. This was on top of a varicose vein. There is no bleeding. Neurological: Alert, Oriented x3, Cranial nerves II-XII grossly intact, Normal Strength, Normal Sensation Psychological: Normal affect, Normal Mood Diagnostic/Tx/Re-eval - Medical Decision Making Patient nontoxic vital signs stable. Patient small nodule unclear etiology at this time however she has no pain or any pruritic effects. She will monitor at this time. She is an outpatient ultrasound of her leg as. She has no calf or medial thigh pain. I do not feel emergent ultrasound is needed at this time. She also has contact dermatitis left forearm will write a prescription for topical steroids to use twice a day. She will follow-up with her PCP. All questions were answered. ED Disposition - Plan for ED Patient: Disposition: Home or Assisted Living Diagnosis: Contact dermatitis, Nodule of skin of right lower leg, Varicose veins of both lower extremities Instructions: ED Dermatitis Poison Trudi Prescriptions: Hydrocortisone 2.5% Crm [Hytone] 1 applic TOPICAL BID #1 tube Transmission Status: Pending to [facility] Referrals: Earl Bingham MD [Primary Care Provider] - 5-7 Days
[2019-12-21 22:41] VITALS: RESP 15
== END 2019-12-21 22:41 | disposition home or self-care (01) ==
PROVIDERS: Emergency Provider Emergency Medicine; PCP Family Medicine
DX: R22.41 Localized swelling, mass and lump, right lower limb (principal); L25.9 Unspecified contact dermatitis, unspecified cause; I83.93 Asymptomatic varicose veins of bilateral lower extremities
CPT/HCPCS: 99282

== ENCOUNTER 2021-07-12 07:38 | Outpatient (CLI) | payer OTHER, SELFPAY ==
[2021-07-12 08:21] LABS: Absolute Lymphocyte Count 1.48 X10^3/uL (0.83-4.51); Absolute Neutrophil Count 3.2 X10^3/uL (2.0-7.7); Basophil# 0.02 X10^3/uL; Basophil% 0.4 % (0-1); Eosinophil# 0.05 X10^3/uL; Hemoglobin 13.6 g/dL (12.0-15.0); Lymphocyte # 1.48 X10^3/ul (0.83-4.51); Lymphocyte % 28.2 % (19-41); Mean Corp Hgb Conc 33.2 g/dL (32-36); Mean Corpuscular Hgb 30.3 pg (27.0-32.0); Mean Corpuscular Volume 91.3 fL (81-99); Mean Platelet Vol. 9.2 fl (6.2-12.0); Monocyte# 0.45 X10^3/uL; Monocyte% 8.6 % (0-10); NRBC Flagged by Analyzer 0 % (0-5); Neutrophil # 3.24 X10^3/uL (2.7-7.7); Neutrophil % 61.6 % (47-70); Platelet Count 256 K/mm3 (150-450); RBC Distribution Width CV 12.2 % (11.6-14.6); RBC Distribution Width SD 40.4 fl (35.1-43.9); Red Blood Count 4.49 M/mm3 (4.2-5.4); White Blood Count 5.3 K/mm3 (4.4-11.0)
[2021-07-12 08:58] LABS: AST(SGOT) 20 U/L (15-37); Alanine Aminotransfer ALT/SGPT 47 U/L (13-56); Albumin, Serum 3.5 g/dL (3.2-5.0); Alkaline Phosphatase 70 U/L (45-117); Anion Gap 5 (5-15); BUN 14 mg/dL (7-18); BUN/Creat Ratio 21.4 RATIO (10-20); Calcium,Total 8.7 mg/dL (8.5-10.1); Chloride 103 mmol/L (98-107); Cholesterol 132 mg/dL (200); Creatinine, Serum 0.66 mg/dL (0.55-1.02); EST Glomerular Filtration Rate 107 mL/min (>60); Est Glom Filt Rate - Afr Amer 129 mL/min (>60); Globulin 3.5 g/dL (2.2-4.2); Glucose 93 mg/dL (74-106); High Density Lipoprotein 43 mg/dL; Potassium 3.7 mmol/L (3.5-5.1); Sodium Level 135 mmol/L (136-145); Thyroid Stim Hormone (TSH) 2.13 uIU/mL (0.358-3.74); Triglycerides 81 mg/dL; Very Low Density Lipoprotein 16 mg/dL (5-40)
== END 2021-07-12 23:59 | disposition short-term general hospital (02) ==
LOC: LAB 07:40
PROVIDERS: PCP Family Medicine; Visit Provider Family Medicine
DX: R79.89 Other specified abnormal findings of blood chemistry (principal); E66.01 Morbid (severe) obesity due to excess calories
CPT/HCPCS: 36415; 80053; 80061; 84443; 85025

== ENCOUNTER 2021-09-01 09:51 | Outpatient (CLI) | payer OTHER, SELFPAY ==
[2021-09-05 12:38] LABS: HPV APTIMA, High Risk Negative (Negative)
== END 2021-09-01 23:59 | disposition home or self-care (01) ==
LOC: LABSPEC 09-02 09:52
PROVIDERS: PCP Family Medicine; Visit Provider Obstetrics & Gynecology
DX: Z12.4 Encounter for screening for malignant neoplasm of cervix (principal)
CPT/HCPCS: 87624; 88175; G0145

== ENCOUNTER → 2022-11-10 | Outpatient (CLI) | payer OTHER, SELFPAY ==
--- NOTE | 2022-11-10 15:09 | BI_ITS ---
MAMMOGRAPHY - BILATERAL SCREENING REASON FOR EXAM: Female, 42 years old. Routine annual screening examination. PERTINENT HISTORY: Non-contributory. TECHNIQUE: Digital bilateral breast nuvia (3D mammographic acquisition) in the CC and MLO projections. 2-D mediolateral oblique (MLO) and craniocaudad (CC) views of both breasts were obtained. CAD: Full Field Digital Mammography with Computer Added Detection was performed. COMPARISON: None. Baseline examination. FINDINGS: Breast Composition: The breasts are heterogeneously dense, which may obscure small masses. There are no dominant masses or suspicious calcifications. No other significant abnormalities are identified. BI/SCRN MAMM (CAD)W/NUVIA BILAT IMPRESSION: Negative screening mammogram. Yearly followup mammogram recommended. (A) ASSESSMENT CATEGORY: BIRADS Category 1: Negative. A letter regarding these results will be sent to the patient by the facility within 30 days. Approximately 10% of breast cancers are not detected by mammography. A normal mammogram should not delay biopsy of a clinically suspicious abnormality. Electronically Signed: Luis Manuel Alberts DO at 9:35 EDT ,
== END | disposition home or self-care (01) ==
LOC: OPBI 15:08
PROVIDERS: PCP Family Medicine; Referring Provider Obstetrics & Gynecology; Visit Provider Obstetrics & Gynecology
DX: Z12.31 Encounter for screening mammogram for malignant neoplasm of breast (principal)
CPT/HCPCS: 77063; 77067

== ENCOUNTER → 2024-02-23 | Outpatient (CLI) | payer OTHER, SELFPAY ==
[2024-02-23 10:34] LABS: Absolute Lymphocyte Count 1.08 X10^3/uL (0.83-4.51); Absolute Neutrophil Count 3.2 X10^3/uL (2.0-7.7); Basophil# 0.03 X10^3/uL; Basophil% 0.6 % (0-1); Eosinophil# 0.06 X10^3/uL; Eosinophils% 1.2 % (0-5); Hematocrit 40.8 % (37-47); Hemoglobin 13.5 g/dL (12.0-15.0); Lymphocyte # 1.08 X10^3/ul (0.83-4.51); Mean Corp Hgb Conc 33.1 g/dL (32-36); Mean Corpuscular Hgb 30.5 pg (27.0-32.0); Mean Corpuscular Volume 92.1 fL (81-99); Mean Platelet Vol. 9.1 fl (6.2-12.0); Monocyte# 0.49 X10^3/uL; NRBC Flagged by Analyzer 0 % (0-5); Neutrophil # 3.24 X10^3/uL (2.7-7.7); Platelet Count 286 K/mm3 (150-450); RBC Distribution Width CV 12.6 % (11.6-14.6); RBC Distribution Width SD 42.8 fl (35.1-43.9); Red Blood Count 4.43 M/mm3 (4.2-5.4); White Blood Count 4.9 K/mm3 (4.4-11.0)
[2024-02-23 10:54] LABS: Vitamin B12 595 pg/mL (211-911); Vitamin D,25 Hydroxy 33.1 ng/mL
[2024-02-23 11:12] LABS: ALB/GLOB Ratio 0.9 RATIO (0.9-2.4); AST(SGOT) 38 U/L (15-37); Alanine Aminotransfer ALT/SGPT 80 U/L (13-56); Albumin, Serum 3.7 g/dL (3.2-5.0); Alkaline Phosphatase 82 U/L (45-117); Anion Gap 5 (5-15); BUN 12 mg/dL (7-18); Calcium,Total 9.5 mg/dL (8.5-10.1); Chloride 105 mmol/L (98-107); Cholesterol 161 mg/dL (200); Creatinine, Serum 0.75 mg/dL (0.55-1.02); EST Glomerular Filtration Rate 90 mL/min (>60); Est Glom Filt Rate - Afr Amer 109 mL/min (>60); Glucose 100 mg/dL (74-106); High Density Lipoprotein 50 mg/dL; Protein, Total 7.7 g/dL (6.4-8.2); Sodium Level 137 mmol/L (136-145); T4 Free Direct 1.24 ng/dL (0.76-1.46); Triglycerides 79 mg/dL; Very Low Density Lipoprotein 16 mg/dL (5-40)
== END | disposition home or self-care (01) ==
LOC: MFPLAB 08:33
PROVIDERS: PCP Family Medicine; Visit Provider Family Medicine
DX: E66.01 Morbid (severe) obesity due to excess calories (principal); R53.83 Other fatigue
CPT/HCPCS: 36415; 80053; 80061; 82306; 82607; 84439; 84443; 85025

== ENCOUNTER → 2024-06-26 | Outpatient (CLI) | payer OTHER, SELFPAY ==
--- NOTE | 2024-06-26 08:08 | BI_ITS ---
MAMMOGRAPHY - BILATERAL SCREENING REASON FOR EXAM: Female, 44 years old. Routine annual screening examination. PERTINENT HISTORY: Non-contributory. TECHNIQUE: Digital bilateral breast nuvia (3D mammographic acquisition) in the CC and MLO projections. 2-D mediolateral oblique (MLO) and craniocaudad (CC) views of both breasts were obtained. CAD: Full Field Digital Mammography with Computer Added Detection was performed. COMPARISON: Comparison is made with prior study dated November 10, 2022. FINDINGS: Breast Composition: The breasts are heterogeneously dense, which may obscure small masses. There are no dominant masses or suspicious calcifications. No other significant abnormalities are identified. There has been no significant change since the prior study. BI/SCRN MAMM (CAD)W/NUVIA BILAT IMPRESSION: Stable bilateral screening mammogram. Yearly follow-up mammogram recommended. (A) ASSESSMENT CATEGORY: BIRADS Category 1: Negative. A letter regarding these results will be sent to the patient by the facility within 30 days. Approximately 10% of breast cancers are not detected by mammography. A normal mammogram should not delay biopsy of a clinically suspicious abnormality. [id number] Electronically Signed: Sid Mayers MD at 9:30 EST ,
== END | disposition home or self-care (01) ==
LOC: OPBI 08:07
PROVIDERS: PCP Family Medicine; Referring Provider Nurse Practitioner Family; Visit Provider Nurse Practitioner Family
DX: Z12.31 Encounter for screening mammogram for malignant neoplasm of breast (principal)
CPT/HCPCS: 77063; 77067